=== PATIENT | male | born 2000 | race Caucasian/White ===

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

== ENCOUNTER 2018-03-16 14:36 | Emergency (ER) | END 2018-03-16 16:19 | disposition left against medical advice (07) ==

== ENCOUNTER 2018-03-16 19:00 | Emergency (ER) | END 2018-03-16 21:00 | disposition left against medical advice (07) ==